=== PATIENT | male | born 1970 | race Hispanic/Latino ===

== ENCOUNTER 2024-12-11 00:18 | Emergency (ER) | payer OTHER ==
[~2024-12-11] VITALS: Ht 188 cm; Wt 109.8 kg
[2024-12-11 00:33] VITALS: RESP 20; TEMP 99.2
[2024-12-11 00:45] VITALS: PULSE 88
[2024-12-11 01:45] VITALS: BP 131/82; O2SAT 96
== END 2024-12-11 00:53 | disposition home or self-care (01) ==
LOC: ER 00:25
DX: M10.9 Gout, unspecified (principal); I12.9 Hypertensive chronic kidney disease with stage 1 through stage 4 chronic kidney disease, or unspecified chronic kidney disease; N18.9 Chronic kidney disease, unspecified; E78.5 Hyperlipidemia, unspecified; F32.A Depression, unspecified
CPT/HCPCS: 99283